=== PATIENT | male | born 1940 | race Caucasian/White ===

== ENCOUNTER 2019-09-20 07:23 | Inpatient (IN) | payer MEDICARE ==
[2019-09-16 16:02] LABS: BASOPHILS % (AUTO) 0.6 % (0.0-5.0); EOSINOPHILS % (AUTO) 4.8 % (0.0-8.0); HEMATOCRIT 41.4 % (42-54); LYMPHOCYTES % (AUTO) 11.8 % (21.0-51.0); MEAN CORPUSCULAR HEMOGLOBIN 25.6 pg (27.0-33.0); MEAN CORPUSCULAR HGB CONC 31.4 g/dL (32.0-36.0); MEAN CORPUSCULAR VOLUME 81.5 fL (79-99); MONOCYTES % (AUTO) 13.4 % (3.0-13.0); NEUTROPHILS % (AUTO) 68.8 % (40.0-77.0); PLATELET COUNT (AUTO) 196 K/uL (130-400); RED BLOOD CELL COUNT(AUTO) 5.08 MIL/uL (4.50-6.20); RED CELL DISTRIBUTION WIDTH 16.2 % (11.0-15.5); WHITE BLOOD COUNT (AUTO) 7.1 K/uL (4.8-10.8)
[2019-09-16 16:11] VITALS: BP 138/73
[2019-09-16 16:12] LABS: POTASSIUM 4.2 mmol/L (3.5-5.1)
[2019-09-16 16:21] LABS: INR 1.01 (0.85-1.15); PARTIAL THROMBOPLASTIN TIME 27.8 SEC (26.3-35.5); PROTHROMBIN TIME 10.9 SEC (9.6-11.6)
[2019-09-16 16:28] LABS: HEMOGLOBIN A1C 6.2 % (4.0-6.0)
[2019-09-20] VITALS (26 sets, daily range): BP systolic 92–165; BP diastolic 40–86
[~2019-09-20] VITALS: Ht 170.2 cm; Wt 100.8 kg
[~2019-09-20 07:23] MED LIST: AMLO5TAB9 PO; ATOR-2 PO; CLOP75TA14 PO; DUTA0.5C18 PO; EZET10TA13 PO; FOLI0.8C PO; FURO20TA4 PO; IPRA3AMP24 IH; IRON1CAP28 PO; METF-444 PO; PREG75CA75 PO; SALBUTAMOL IH; TIOT4MIS5 IH; TRAZ-187 PO; VITAMIN B12 PO
[2019-09-20] MEDS ORDERED: SODIUM CHLORIDE 0.9% 1000ML 1,000 ML IV ONE (07:47)
[2019-09-20] MEDS ORDERED: CEFUROXIME SODIUM 1.5 GM VIAL ONE (08:29)
[2019-09-20] MEDS ORDERED: LIDOCAINE PF 2% 5ML ABBOJECT ONE (12:41)
[2019-09-20] MEDS ORDERED: MIDAZOLAM HCL 1 MG/ML 2ML VIAL ONE (12:42)
[2019-09-20] MEDS ORDERED: ROCURONIUM 10MG/1ML SYR 10 MG/ML ML ONE (12:42)
[2019-09-20] MEDS ORDERED: PROPOFOL 10 MG/ML 20ML VIAL IV ONE ×2 (12:42→13:50)
[2019-09-20] MEDS ORDERED: CEFAZOLIN SODIUM 1 GM VIAL ONE (13:05)
[2019-09-20] MEDS ORDERED: LIDOCAINE HCL-MPF 1% 2ML VIAL IV PRN (13:45)
[2019-09-20] MEDS ORDERED: GLUCAGON 1MG KIT 1 MG ML IM PRN (13:45)
[2019-09-20] MEDS ORDERED: POTASSIUM CHLORIDE 20MEQ/100ML 100 ML IV PRN (13:45)
[2019-09-20] MEDS ORDERED: DEXTROSE 50%-WATER 50 ML DISP.SYRIN IV PRN (13:45)
[2019-09-20] MEDS ORDERED: POTASSIUM CHLORIDE 20 MEQ ERTAB PO PRN (13:45)
[2019-09-20] MEDS ORDERED: POTASSIUM CHLORIDE 10% ELIXIR 20 MEQ/15 ML UDCUP PO PRN (13:45)
[2019-09-20] MEDS: IPRATROPIUM/ALBUTEROL SULFATE 3 ML SOLUTION IH SCH (14:00)
[2019-09-20] MEDS ORDERED: PHENYLEPHRINE HCL 10 MG/ML 1ML VIAL IV ONE (14:12)
[2019-09-20] MEDS ORDERED: GLYCOPYRROLATE 1 MG/5 ML SYRINGE ONE (14:12)
[2019-09-20] MEDS ORDERED: NEOSTIGMINE 5MG/5ML SYR IV ONE (14:12)
[2019-09-20] MEDS ORDERED: FENTANYL CITRATE PF 50 MCG/1 ML 2ML VIAL ONE (14:13)
[2019-09-20] MEDS ORDERED: MEPERIDINE-PF 25 MG/ML SYG ONE ×2 (15:16→15:24)
--- NOTE | 2019-09-20 16:15 | NUR ---
RLE ELEVATED ON 2 PILLOWS; FOOT FLUSHED COLOR AND WARM; PULSES TO DOPPLER
[2019-09-20] MEDS: INSULIN HUMULIN R 100 UNIT/ML 3ML SQ SCH ×2 (16:30→21:00)
[2019-09-20] MEDS ORDERED: KETOROLAC TROMETHAMINE 30MG/ML ONE (18:26)
[2019-09-20] MEDS ORDERED: PHARMACY COMMUNICATION MISC SCH (18:30)
[2019-09-20] MEDS: METFORMIN HCL 500 MG TABLET PO SCH (20:27)
[2019-09-20] MEDS ORDERED: NON-FORMULARY MEDICATION 1 EACH (Atorvastatin Calcium 80 MG) PO SCH (21:00)
[2019-09-20] MEDS ORDERED: TRAZODONE HCL 50 MG TAB PO PRN (21:00)
[2019-09-20] MEDS: PREGABALIN 75 MG CAPSULE PO SCH (21:00)
[2019-09-20] MEDS: ATORVASTATIN CALCIUM 40 MG TABLET PO SCH (21:27)
[2019-09-20] MEDS: EZETIMIBE 10 MG TAB PO SCH (21:27)
[2019-09-21] MEDS: KETOROLAC TROMETHAMINE 15MG/ML IV PRN ×3 (00:43→20:43)
[2019-09-21 03:21] VITALS: BP 149/71
[2019-09-21 04:13] LABS: HEMATOCRIT 40.1 % (42-54); MEAN CORPUSCULAR HEMOGLOBIN 26.2 pg (27.0-33.0); MEAN CORPUSCULAR HGB CONC 31.2 g/dL (32.0-36.0); MEAN CORPUSCULAR VOLUME 83.9 fL (79-99); PLATELET COUNT (AUTO) 200 K/uL (130-400); RED BLOOD CELL COUNT(AUTO) 4.78 MIL/uL (4.50-6.20); RED CELL DISTRIBUTION WIDTH 16.4 % (11.0-15.5); WHITE BLOOD COUNT (AUTO) 8.8 K/uL (4.8-10.8)
[2019-09-21 04:21] LABS: CREATININE 0.9 mg/dL (0.5-1.5)
[2019-09-21] MEDS: IPRATROPIUM/ALBUTEROL SULFATE 3 ML SOLUTION IH SCH ×3 (05:30→21:32)
[2019-09-21] MEDS: INSULIN HUMULIN R 100 UNIT/ML 3ML SQ SCH ×4 (06:32→21:00)
[2019-09-21 08:20] VITALS: BP 143/79
[2019-09-21] MEDS ORDERED: SALMETEROL IH PRN (09:00)
[2019-09-21] MEDS ORDERED: NON-FORMULARY MEDICATION 1 EACH (Folic Acid 0.8 MG) PO SCH (09:00)
[2019-09-21] MEDS ORDERED: NON-FORMULARY MEDICATION 1 EACH (Dutasteride 0.5 MG) PO SCH (09:00)
[2019-09-21] MEDS ORDERED: NON-FORMULARY MEDICATION 1 EACH ([Vitamin B12] 1,000 MCG) PO SCH (09:00)
[2019-09-21] MEDS: TIOTROPIUM BROMIDE IH SCH (09:00)
[2019-09-21] MEDS: DUTASTERIDE 0.5MG PO SCH (09:00)
[2019-09-21] MEDS: FOLIC ACID/VITAMIN B COMP W-C 1 CAP TAB PO SCH (10:00)
[2019-09-21] MEDS: METFORMIN HCL 500 MG TABLET PO SCH ×2 (10:00→20:24)
[2019-09-21] MEDS: PREGABALIN 75 MG CAPSULE PO SCH ×3 (10:00→22:07)
[2019-09-21] MEDS: FUROSEMIDE 20 MG TABLET PO SCH (10:00)
[2019-09-21] MEDS: CYANOCOBALAMIN (VITAMIN B-12) 1,000 MCG TABLET PO SCH (10:00)
[2019-09-21] MEDS: CLOPIDOGREL BISULFATE 75 MG TAB PO SCH (10:01)
[2019-09-21] MEDS: FOLIC ACID 1 MG TABLET PO SCH (10:01)
[2019-09-21] MEDS: AMLODIPINE BESYLATE 5 MG TAB PO SCH (10:01)
--- NOTE | 2019-09-21 11:11 | NUR ---
INITIAL Patient lives with spouse, Lizzette Kitchen, [phone]. No home services. DME: glucometer (no insulin), BPM, nebulizer. Patient states he is able to complete ADL's and is able to drive. PCP is Dr. Tez Sloan. Pharmacy is [facility] located in [place]. DCP is home. Addendum: 09/21/19 at 1114 by AMIRA LINTON SS Amended: Links added.
[2019-09-21 11:29] VITALS: BP 119/60
[2019-09-21 16:10] VITALS: BP 129/52
--- NOTE | 2019-09-21 20:00 | NUR ---
PT STATED DR. KAMARA ROUNDED. AND ASSESSED HIS LEGS, AND EDUCATED HIM ON INCREASED REDNESS S/P FEM POP. DR. KAMARA STATED HE WOULD POSSIBLY DC THE PT IN THE AM.
[2019-09-21] MEDS: ATORVASTATIN CALCIUM 40 MG TABLET PO SCH (20:23)
[2019-09-21] MEDS: EZETIMIBE 10 MG TAB PO SCH (20:23)
[2019-09-21] MEDS ORDERED: PREG75 PO (20:30)
[2019-09-21 20:34] VITALS: BP 127/64
[2019-09-22 00:39] VITALS: BP 132/66
[2019-09-22 04:00] VITALS: BP 151/66
[2019-09-22] MEDS: INSULIN HUMULIN R 100 UNIT/ML 3ML SQ SCH (06:05)
[2019-09-22] MEDS: IPRATROPIUM/ALBUTEROL SULFATE 3 ML SOLUTION IH SCH (06:19)
[2019-09-22 08:00] VITALS: BP 112/58
[2019-09-22] MEDS: DUTASTERIDE 0.5MG PO SCH (09:00)
[2019-09-22] MEDS: TIOTROPIUM BROMIDE IH SCH (09:00)
[2019-09-22] MEDS: AMLODIPINE BESYLATE 5 MG TAB PO SCH (09:53)
[2019-09-22] MEDS: FOLIC ACID 1 MG TABLET PO SCH (09:53)
[2019-09-22] MEDS: CLOPIDOGREL BISULFATE 75 MG TAB PO SCH (09:53)
[2019-09-22] MEDS: METFORMIN HCL 500 MG TABLET PO SCH (09:53)
[2019-09-22] MEDS: FUROSEMIDE 20 MG TABLET PO SCH (09:53)
[2019-09-22] MEDS: PREGABALIN 75 MG CAPSULE PO SCH (09:54)
[2019-09-22] MEDS: FOLIC ACID/VITAMIN B COMP W-C 1 CAP TAB PO SCH (09:54)
[2019-09-22] MEDS: CYANOCOBALAMIN (VITAMIN B-12) 1,000 MCG TABLET PO SCH (09:54)
[2019-09-22] MEDS: KETOROLAC TROMETHAMINE 15MG/ML IV PRN (10:01)
== END 2019-09-22 11:15 | disposition home or self-care (01) | DRG 254 ==
LOC: DAHIP 07:23 → 2AH 16:06
PROVIDERS: ADMIT Thoracic Surgery (Cardiothoracic Vascular Surgery); ATTEND Thoracic Surgery (Cardiothoracic Vascular Surgery)
PROC: 041K0ZL Bypass Right Femoral Artery to Popliteal Artery, Open Approach (ICD-10-PCS; principal; 2019-09-22)
DX: I73.9 Peripheral vascular disease, unspecified (principal); I99.8 Other disorder of circulatory system
CPT/HCPCS: 36415; 71046; 80048; 82948; 83036; 85025; 85027; 85610; 85730; 86850; 86900; 86901; 93005; 94640; 94664; 97039; G0378; J0690; J0697; J1644; J1885; J2001; J2175; J2250; J2370; J2704; J2710; J3010; J3490; J7030; J7040